=== PATIENT | female | born 1995 | race American Indian/Alaskan Native ===

== ENCOUNTER 2020-06-11 14:13 | Emergency (ER) | payer MEDICAID ==
--- NOTE | 2020-06-11 16:35 | Event Note ---
ED Screening Note ED Screening Note: epigastric abd discomfort back pain nausea, one episode of vomiting PMHx sickle cell trait no allergies to meds LNMP: currently on cycle This initial assessment/diagnostic orders/clinical plan/treatment(s) is/are subject to change based on patients health status, clinical progression and re-assessment by fellow clinical providers in the ED. Further treatment and workup at subsequent clinical providers discretion. Patient/guardian urged not to elope from the ED as their condition may be serious if not clinically assessed and managed. Initial orders include: labs, UA
[2020-06-11 17:05] LABS: Basophils # (Auto) 0.1 K/mm3 (0.0-0.1); Basophils % (Auto) 0.7 % (0.0-1.8); Eosinophils # (Auto) 0.2 K/mm3 (0.0-0.4); Eosinophils % (Auto) 1.7 % (0.0-4.3); Hematocrit 41.4 % (30.3-42.9); Hemoglobin 13.6 gm/dl (10.1-14.3); Lymphocytes # (Auto) 3.6 K/mm3 (1.2-5.4); Lymphocytes % (Auto) 32.1 % (13.4-35.0); Mean Corpuscular HGB Conc 33 % (30-34); Mean Corpuscular Volume 79 fl (79-97); Monocytes # (Auto) 0.9 K/mm3 (0.0-0.8); Monocytes % (Auto) 7.6 % (0.0-7.3); Platelet Count 294 K/mm3 (140-440); Red Blood Count 5.26 M/mm3 (3.65-5.03); Red Cell Distribution Width 14.7 % (13.2-15.2)
[2020-06-11 17:08] LABS: Alanine Aminotransferase 9 units/L (7-56); Blood Urea Nitrogen 6 mg/dL (7-17); Calcium 9.4 mg/dL (8.4-10.2); Hemolysis Index 9
[2020-06-11 17:12] LABS: BUN/Creatinine Ratio 9
--- NOTE | 2020-06-11 19:15 | Emergency Department Report ---
ED N/V/D HPI - General Chief complaint: Nausea/Vomiting/Diarrhea Stated complaint: CHEST PAINS LT SIDE X7 DAYS Time Seen by Provider: 06/11/20 16:33 Source: patient Mode of arrival: Ambulatory Limitations: No Limitations - History of Present Illness Initial comments: 24-year-old obese F [place] female presents to the emergency department complaining of 1 to 2 weeks history of waxing and waning nausea with an occasional episode of vomiting. States that it always preceded about 1 or 2 weeks ago with a couple episodes of diarrhea which was associated with epigastric pain which lasted for about 1 to 1-day and then resolve however she is been unable to get rid of the continuous waves of nausea. She states that she normally only feels like this when she is and had a suspicion today. She reports no chest pain, no palpitations no current abdominal pain, no fever, chills, sweats, hemoptysis, hematemesis hematochezia, dysuria, or hematuria. She is also been experiencing headaches which has been associated with the nausea as well she reports no trauma, no blurred vision, no known hypertension, no visual disturbances, no scotomas, no ear pain or sore throat. MD complaint: nausea Associated Abdominal Pain: No Radiation: none Associated Symptoms: nausea/vomiting. denies: myalgias, chest pain, cough, fever/chills, loss of appetite, shortness of breath, syncope, other - Related Data Previous Rx's Medication Instructions Recorded Last Taken Type Doxylamine Succinate/Vit B6 1 each PO TID #20 tablet. 06/11/20 Unknown Rx [Diclegis Dr 10-10 mg Tablet] Allergies Allergy/AdvReac Type Severity Reaction Status Date / Time No Known Allergies Allergy Unverified 06/11/20 16:02 ED Review of Systems ROS: Stated complaint: CHEST PAINS LT SIDE X7 DAYS Other details as noted in HPI Comment: All other systems reviewed and negative ED Past Medical Hx - Medications Home Medications: Home Medications Medication Instructions Recorded Confirmed Last Taken Type Doxylamine Succinate/Vit B6 1 each PO TID #20 tablet. 06/11/20 Unknown Rx [Diclegis Dr 10-10 mg Tablet] ED Physical Exam - General Limitations: No Limitations General appearance: alert, in no apparent distress - Head Head exam: Present: atraumatic, normocephalic - Eye Eye exam: Present: normal appearance, PERRL, EOMI Pupils: Present: normal accommodation - ENT ENT exam: Present: normal exam, normal orophraynx, mucous membranes moist - Neck Neck exam: Present: normal inspection - Respiratory Respiratory exam: Present: normal lung sounds bilaterally. Absent: respiratory distress, wheezes, rhonchi - Cardiovascular Cardiovascular Exam: Present: regular rate, normal rhythm. Absent: systolic murmur, diastolic murmur, rubs, gallop - GI/Abdominal GI/Abdominal exam: Present: soft, normal bowel sounds, other (No Magaña sign, no Rovsing sign, no Saini Tamez, no tenderness at McBurney's. No suprapubic pain no radiating radiating pain to the shoulder). Absent: tenderness, guarding, rebound, hyperactive bowel sounds, hypoactive bowel sounds, organomegaly, mass - Extremities Exam Extremities exam: Present: normal inspection, normal capillary refill - Back Exam Back exam: Present: normal inspection. Absent: CVA tenderness (R), CVA tenderness (L) - Neurological Exam Neurological exam: Present: alert, oriented X3, CN II-XII intact, normal gait - Psychiatric Psychiatric exam: Present: normal affect, normal mood. Absent: anxious, flat affect, homicidal ideation - Skin Skin exam: Present: warm, dry, intact, normal color. Absent: rash, diaphoretic, erythema, urticaria, petechiae ED Course Vital Signs 06/11/20 06/11/20 16:01 19:44 Temperature 98.8 F 98.1 F Pulse Rate 80 84 Respiratory 16 18 Rate Blood Pressure 115/82 Blood Pressure 125/74 [Left] O2 Sat by Pulse 100 100 Oximetry ED Medical Decision Making - Lab Data Result diagrams: 06/11/20 16:36 06/11/20 16:36 Critical care attestation.: If time is entered above; I have spent that time in minutes in the direct care of this critically ill patient, excluding procedure time. ED Disposition Clinical Impression: Nausea, , Positive test Disposition: - TO HOME OR SELFCARE Is pt being admited?: No Does the pt Need Aspirin: No Condition: Stable Instructions: Nausea, Adult, First Trimester of , [id number], P renatal Care, How a Baby Grows During Prescriptions: Doxylamine Succinate/Vit B6 [Kiarra Anton 10-10 mg Tablet] 1 each PO TID #20 tablet. Referrals: [facility] [Provider Group] - 3-5 Days [facility], [Primary Care Provider] - 3-5 Days
[2020-06-11 19:39] LABS: Bilirubin,Urine NEG (Negative); Blood,Urine NEG (Negative); Color,Urine Yellow (Yellow); Protein,Urine <15 mg/dL mg/dL (Negative); Urobilinogen,Urine < 2.0 mg/dL (<2.0); WBC,Urine < 1.0 /HPF (0.0-6.0)
[2020-06-11 19:45] VITALS: BP 115/82
== END 2020-06-11 19:55 | disposition home or self-care (01) ==
LOC: ED 14:13
DX: O26.891 Other specified pregnancy related conditions, first trimester (principal); R11.0 Nausea; Z3A.00 Weeks of gestation of pregnancy not specified; Z79.899 Other long term (current) drug therapy
CPT/HCPCS: 36415; 80053; 81001; 83690; 84703; 85025

== ENCOUNTER 2020-06-15 12:05 | Emergency (ER) | payer MEDICAID ==
[2020-06-15] MEDS ORDERED: ONDANSETRON 4 MG/2 ML INJ IV ONE (12:29)
[2020-06-15] MEDS ORDERED: SODIUM CHLORIDE 0.9% 1000 ML 1,000 ML IV ONE (12:29)
--- NOTE | 2020-06-15 13:17 | Emergency Department Report ---
ED General Adult HPI - General Chief complaint: Nausea/Vomiting/Diarrhea Stated complaint: ,VOMITING/SEEN HERE 2 DAYS AGO Time Seen by Provider: 06/15/20 12:26 Source: patient Mode of arrival: Ambulatory Limitations: No Limitations - History of Present Illness Initial comments: 24-year-old female presents to the emergency room stating that she is she was had a positive at this ER on 06/11/2020. She states that she has had ongoing nausea fat now with vaginal bleeding which she describes as spotting not enough for her to use pad over the last 2 weeks she states the nausea causes her chest to hurt especially when she feels like she has to vomit. She denies any other symptoms no fever no coughing no shortness of breath. She is 5 para 3 AB 1. She has not followed up with her PCP as yet -: week(s) Location: chest Radiation: non-radiation Worsens with: none Associated Symptoms: nausea/vomiting. denies: confusion, cough, fever/chills, loss of appetite, shortness of breath, syncope, weakness Treatments Prior to Arrival: none - Related Data Previous Rx's Medication Instructions Recorded Last Taken Type Doxylamine Succinate/Vit B6 1 each PO TID #20 tablet. 06/11/20 Unknown Rx [Kiarra Anton 10-10 mg Tablet] Ondansetron [Zofran Odt] 4 mg PO Q8HR PRN #20 tab.umeshdis 06/15/20 Unknown Rx Allergies Allergy/AdvReac Type Severity Reaction Status Date / Time No Known Allergies Allergy Unverified 06/11/20 16:02 ED Review of Systems ROS: Stated complaint: ,VOMITING/SEEN HERE 2 DAYS AGO Other details as noted in HPI ED Past Medical Hx - Past Medical History Previous Medical History?: No - Surgical History Additional Surgical History: - Social History Smoking Status: Current Every Day Smoker - Medications Home Medications: Home Medications Medication Instructions Recorded Confirmed Last Taken Type Doxylamine Succinate/Vit B6 1 each PO TID #20 tablet. 06/11/20 Unknown Rx [Kiarra Anton 10-10 mg Tablet] Ondansetron [Zofran Odt] 4 mg PO Q8HR PRN #20 tab.ismael 06/15/20 Unknown Rx ED Physical Exam - General Limitations: No Limitations General appearance: alert, in no apparent distress - Head Head exam: Present: atraumatic, normal inspection - Eye Eye exam: Present: normal appearance - ENT ENT exam: Present: normal exam - Neck Neck exam: Present: normal inspection - Respiratory Respiratory exam: Present: normal lung sounds bilaterally, chest wall tenderness (Anterior chest wall pain with palpation). Absent: respiratory distress, wheezes - Cardiovascular Cardiovascular Exam: Present: regular rate, normal heart sounds - GI/Abdominal GI/Abdominal exam: Present: soft, normal bowel sounds. Absent: distended, tenderness, guarding - Extremities Exam Extremities exam: Present: normal inspection, normal capillary refill - Back Exam Back exam: Present: normal inspection. Absent: CVA tenderness (R), CVA tenderness (L) - Neurological Exam Neurological exam: Present: alert, oriented X3, normal gait - Psychiatric Psychiatric exam: Present: normal affect - Skin Skin exam: Present: warm, dry, intact ED Course Vital Signs 06/15/20 06/15/20 12:10 17:13 Temperature 98.0 F Pulse Rate 105 H 82 Respiratory 18 18 Rate Blood Pressure 129/60 Blood Pressure 126/62 [Right] O2 Sat by Pulse 98 99 Oximetry - Reevaluation(s) Reevaluation #1: 06/15/20 16:44 Patient in room sleeping comfortably had to be aroused she denies any current pain no chest pain no shortness of breath she received 1 L of IV fluids. I observed her walking to the bathroom with steady gait and in no distress ED Medical Decision Making - Lab Data Result diagrams: 06/15/20 14:08 06/15/20 14:08 - Radiology Data Radiology results: report reviewed EXAMINATION: Obstetrical Ultrasound INDICATION: Abdominal pain in early COMPARISON: None FINDINGS: There is a single, living intrauterine . Kistler-rump length = 1.2 cm = 7 weeks, 1 day(s). heart rate is 164 beats per minute. The right adnexal region appears within normal limits. The left adnexal region is not well- visualized. No free pelvic fluid is seen. IMPRESSION: 1. Single living intrauterine with estimated gestational age of 7 weeks, 1 day. Critical Care Time: No Critical care attestation.: If time is entered above; I have spent that time in minutes in the direct care of this critically ill patient, excluding procedure time. ED Disposition Clinical Impression: Threatened miscarriage in early Qualifiers: Weeks of gestation: less than 8 weeks Qualified Code(s): Z3A.01 - Less than 8 weeks gestation of Disposition: DC- TO HOME OR SELFCARE Is pt being admited?: No Does the pt Need Aspirin: No Condition: Stable Instructions: Threatened Miscarriage, First Trimester of , [id number]-[id number] Additional Instructions: According to the ultrasound you are 7 weeks and 1 day your baby's heart rate is 164 [place] [address]. Rest drink plenty fluids please follow-up with with your INTERN PRODUCT MARKETING MANAGER doctor as soon as possible I have given you the my [employer]N PRODUCT MARKETING MANAGER group you can also give them a call to make an appointment at [phone]. Your urine shows no signs of infection. Your blood work had slight changes which are nonspecific and could just be related to dehydration or viral causes. Please follow-up with your INTERN PRODUCT MARKETING MANAGER or return to the emergency room for abdominal pain or heavy vaginal bleeding Prescriptions: Ondansetron [Zofran Odt] 4 mg PO Q8HR PRN #20 tab.rapdis PRN Reason: Nausea Referrals: PRIMARY CARE, [Primary Care Provider] - 3-5 Days NARINDER MOFFETT MD [Staff Physician] - 3-5 Days Time of Disposition: 16:49
[2020-06-15] MEDS ORDERED: ONDANSETRON 4 MG ODT TAB PO ONE (13:36)
--- NOTE | 2020-06-15 14:15 | Ultrasound Report ---
EXAMINATION: Obstetrical Ultrasound INDICATION: Abdominal pain in early COMPARISON: None FINDINGS: There is a single, living intrauterine . Velma-rump length = 1.2 cm = 7 weeks, 1 day(s). heart rate is 164 beats per minute. The right adnexal region appears within normal limits. The left adnexal region is not well-visualized . No free pelvic fluid is seen. IMPRESSION: 1. Single living intrauterine with estimated gestational age of 7 weeks, 1 day. Signer Name: Adela Manuel MD Signed: 06/15/2020 2:10 PM Workstation Name: [id number]
[2020-06-15 14:18] LABS: Basophils % (Auto) 0.4 % (0.0-1.8); Eosinophils # (Auto) 0.1 K/mm3 (0.0-0.4); Eosinophils % (Auto) 0.4 % (0.0-4.3); Hematocrit 40.7 % (30.3-42.9); Hemoglobin 13.6 gm/dl (10.1-14.3); Lymphocytes % (Auto) 14.9 % (13.4-35.0); Mean Corpuscular HGB Conc 34 % (30-34); Mean Corpuscular Volume 77 fl (79-97); Monocytes # (Auto) 0.9 K/mm3 (0.0-0.8); Monocytes % (Auto) 6.9 % (0.0-7.3); Platelet Count 290 K/mm3 (140-440); Red Blood Count 5.26 M/mm3 (3.65-5.03); Red Cell Distribution Width 14.8 % (13.2-15.2)
[2020-06-15 14:44] LABS: Alanine Aminotransferase 9 units/L (7-56); Albumin 4.1 g/dL (3.9-5); BUN/Creatinine Ratio 9; Blood Urea Nitrogen 6 mg/dL (7-17); Calcium 9.4 mg/dL (8.4-10.2); Hemolysis Index 0
[2020-06-15 16:24] LABS: Bilirubin,Urine NEG (Negative); Blood,Urine LG (Negative); Color,Urine Yellow (Yellow); Mucus,Urine FEW /HPF; Urobilinogen,Urine < 2.0 mg/dL (<2.0)
[2020-06-15 17:15] VITALS: BP 126/62
== END 2020-06-15 17:13 | disposition home or self-care (01) ==
LOC: ED 12:05
DX: O20.0 Threatened abortion (principal); F17.200 Nicotine dependence, unspecified, uncomplicated; Z3A.01 Less than 8 weeks gestation of pregnancy; Z98.890 Other specified postprocedural states; Z79.899 Other long term (current) drug therapy
CPT/HCPCS: 36415; 76801; 80053; 81001; 83690; 83735; 84702; 85025; 96361; 96374; 99284; J2405; J7030; Q0162

== ENCOUNTER 2020-08-03 15:47 | Emergency (ER) | payer SELFPAY ==
--- NOTE | 2020-08-03 16:18 | Event Note ---
ED Screening Note Date of service: 08/03/20 Time: 16:06 ED Screening Note: This initial assessment/diagnostic orders/clinical plan/treatment(s) is/are subject to change based on patients health status, clinical progression and re- assessment by fellow clinical providers in the ED. Further treatment and workup at subsequent clinical providers discretion. Patient/guardian urged not to elope from the ED as their condition may be serious if not clinically assessed and managed. Initial orders include: This is a 24-year-old obese female she is complaining of cough headache nausea,vomiting diarrhea symptoms started 1 week ago. She denies any known Covid sick contacts. She reports having an 1 month ago. No current vaginal bleeding. she denies fever. She is in no apparent distress and she denies any chronic medical conditions
[2020-08-03 16:32] LABS: Hematocrit 37.7 % (30.3-42.9); Hemoglobin 12.5 gm/dl (10.1-14.3); Mean Corpuscular HGB Conc 33 % (30-34); Mean Corpuscular Volume 76 fl (79-97); Platelet Count 294 K/mm3 (140-440); Red Blood Count 4.94 M/mm3 (3.65-5.03); Red Cell Distribution Width 14.5 % (13.2-15.2)
--- NOTE | 2020-08-03 16:47 | XRay Report ---
CHEST 2 VIEWS INDICATION / CLINICAL INFORMATION: COUGH, COVID LIKE SYMPTOMS. COMPARISON: None available. FINDINGS: SUPPORT DEVICES: None. HEART / MEDIASTINUM: No significant abnormality. LUNGS / PLEURA: No significant pulmonary or pleural abnormality. No pneumothorax. ADDITIONAL FINDINGS: No significant additional findings. IMPRESSION: 1. No acute findings. Signer Name: Ilan Van MD Signed: 08/03/2020 4:42 PM Workstation Name: [id number]
[2020-08-03 16:50] LABS: Alanine Aminotransferase 19 units/L (7-56); Albumin 3.6 g/dL (3.9-5); BUN/Creatinine Ratio 5; Blood Urea Nitrogen 6 mg/dL (7-17); Calcium 8.8 mg/dL (8.4-10.2); Hemolysis Index 1
[2020-08-03 18:36] LABS: Bacteria,Urine 1+ /HPF (Negative); Bilirubin,Urine NEG (Negative); Blood,Urine MOD (Negative); Color,Urine Amber (Yellow); Mucus,Urine FEW /HPF
[2020-08-03 18:44] LABS: HCG Qualitative,Urine Positive (Negative)
[2020-08-04] MEDS ORDERED: ACETAMINOPHEN 500 MG TAB PO ONE (01:10)
--- NOTE | 2020-08-04 01:45 | Emergency Department Report ---
ED General Adult HPI - General Chief complaint: Chest Pain Stated complaint: CHEST PAIN, BACK PAIN, BLURRY VISION Source: patient Mode of arrival: Ambulatory Limitations: No Limitations - History of Present Illness Initial comments: Patient is a 24-year-old -Beninese female with a history of chronic low back pain and chronic costochondritis who presents to the ED with complaint of acute onset persistent worsening low back pain and suprapubic pain as well as chest pain. Patient states that she is about 4 weeks s/p D&C procedure to evacuate a 9-week and complains of worsening lower abdominal pain and low back pain since the procedure 4 weeks ago. Patient denies fever, chills, dizziness, syncope, nausea and vomiting, chest pain, shortness of breath, cough, vaginal discharge, vaginal bleeding, dysuria, change in vision, numbness and tingling or weakness of upper and lower extremities bilaterally or headache. MD Complaint: Low back pain, lower abdominal pain, chest pain -: Gradual, year(s) (2) Location: chest, back (lower), abdomen (lower) Radiation: non-radiation Severity scale (0 -10): 5 Quality: aching, sharp Consistency: constant Improves with: none Associated Symptoms: denies other symptoms, chest pain, nausea/vomiting. denies: confusion, cough, fever/chills, headaches, malaise, rash, seizure, shortness of breath, syncope Treatments Prior to Arrival: none - Related Data Previous Rx's Medication Instructions Recorded Last Taken Type Doxylamine Succinate/Vit B6 1 each PO TID #20 tablet. 06/11/20 Unknown Rx [Kiarra Anton 10-10 mg Tablet] Ondansetron [Zofran Odt] 4 mg PO Q8HR PRN #20 tab.rapdis 06/15/20 Unknown Rx Baclofen 20 mg PO Q12H PRN #30 tablet 08/04/20 Unknown Rx Ibuprofen [Motrin] 800 mg PO Q8HR PRN #30 tablet 08/04/20 Unknown Rx Ondansetron [Zofran Odt] 4 mg PO Q8HR PRN #20 tab.rapdis 08/04/20 Unknown Rx Sulfamethoxazole/Trimethoprim 1 each PO Q12H #20 tablet 08/04/20 Unknown Rx [Bactrim DS TAB] Allergies Allergy/AdvReac Type Severity Reaction Status Date / Time No Known Allergies Allergy Verified 08/04/20 02:18 ED Review of Systems ROS: Stated complaint: CHEST PAIN, BACK PAIN, BLURRY VISION Other details as noted in HPI Constitutional: denies: chills, fever Eyes: denies: eye pain, eye discharge, vision change ENT: denies: ear pain, throat pain Respiratory: denies: cough, shortness of breath, wheezing Cardiovascular: chest pain (anterior). denies: palpitations Endocrine: no symptoms reported Gastrointestinal: abdominal pain (lower back pain), nausea. denies: vomiting, diarrhea, constipation, hematemesis Genitourinary: denies: urgency, dysuria, discharge Musculoskeletal: back pain (lower back), arthralgia, myalgia. denies: joint swelling Skin: denies: rash, lesions Neurological: denies: headache, weakness, paresthesias Psychiatric: denies: anxiety, depression Hematological/Lymphatic: denies: easy bleeding, easy bruising ED Past Medical Hx - Past Medical History Previous Medical History?: Yes Additional medical history: 06/2020 - Surgical History Past Surgical History?: Yes Additional Surgical History: , 06/2020 - Social History Smoking Status: Current Every Day Smoker Substance Use Type: Alcohol, Marijuana - Medications Home Medications: Home Medications Medication Instructions Recorded Confirmed Last Taken Type Doxylamine Succinate/Vit B6 1 each PO TID #20 tablet. 06/11/20 Unknown Rx [Kiarra Anton 10-10 mg Tablet] Ondansetron [Zofran Odt] 4 mg PO Q8HR PRN #20 tab.rapdis 06/15/20 Unknown Rx Baclofen 20 mg PO Q12H PRN #30 tablet 08/04/20 Unknown Rx Ibuprofen [Motrin] 800 mg PO Q8HR PRN #30 tablet 08/04/20 Unknown Rx Ondansetron [Zofran Odt] 4 mg PO Q8HR PRN #20 tab.rapdis 08/04/20 Unknown Rx Sulfamethoxazole/Trimethoprim 1 each PO Q12H #20 tablet 08/04/20 Unknown Rx [Bactrim DS TAB] ED Physical Exam - General Limitations: No Limitations General appearance: alert, in no apparent distress - Head Head exam: Present: atraumatic, normocephalic, normal inspection - Eye Eye exam: Present: normal appearance, PERRL, EOMI Pupils: Present: normal accommodation - ENT ENT exam: Present: normal exam, normal orophraynx, mucous membranes moist, TM's normal bilaterally, normal external ear exam - Neck Neck exam: Present: normal inspection, full ROM - Respiratory Respiratory exam: Present: normal lung sounds bilaterally, chest wall tenderness (palpable reproducible diffuse anterior chest wall tenderness). Absent: respiratory distress, wheezes, rales, rhonchi, accessory muscle use, decreased breath sounds, prolonged expiratory - Cardiovascular Cardiovascular Exam: Present: normal rhythm, tachycardia, normal heart sounds. Absent: systolic murmur, diastolic murmur, rubs, gallop - GI/Abdominal GI/Abdominal exam: Present: soft, tenderness (Palpable mild suprapubic tenderness), normal bowel sounds. Absent: guarding, rebound, hyperactive bowel sounds, hypoactive bowel sounds, organomegaly - Extremities Exam Extremities exam: Present: normal inspection, full ROM, normal capillary refill - Back Exam Back exam: Present: normal inspection, full ROM, tenderness (Palpable lumbosacral pain), muscle spasm, paraspinal tenderness. Absent: CVA tenderness (R), vertebral tenderness - Neurological Exam Neurological exam: Present: alert, oriented X3, CN II-XII intact, normal gait, reflexes normal - Psychiatric Psychiatric exam: Present: normal affect, normal mood - Skin Skin exam: Present: warm, dry, intact, normal color. Absent: rash ED Course Vital Signs 08/03/20 08/04/20 08/04/20 16:08 01:50 02:42 Temperature 99.9 F H Pulse Rate 116 H 105 H Respiratory 22 16 Rate Blood Pressure 122/72 107/72 O2 Sat by Pulse 96 100 Oximetry 08/04/20 03:40 Temperature Pulse Rate 87 Respiratory Rate Blood Pressure O2 Sat by Pulse Oximetry ED Medical Decision Making - Lab Data Result diagrams: 08/03/20 16:11 08/03/20 16:11 - Radiology Data Radiology results: report reviewed, image reviewed [facility] [address] [place] [address] XRay Report Signed Patient: UCHE WHITNEY MR#: [id number] 51 : 1995 Acct:[id number] Age/Sex: 24 / F ADM Date: 08/03/20 Loc: ED Attending Dr: Ordering Physician: SHREYASCHET MARTINEZBC Date of Service: 08/03/20 Procedure(s): XR chest routine 2V Accession Number(s): [id number] cc: RODDY HART Fluoro Time In Minutes: CHEST 2 VIEWS INDICATION / CLINICAL INFORMATION: COUGH, COVID LIKE SYMPTOMS. COMPARISON: None available. FINDINGS: SUPPORT DEVICES: None. HEART / MEDIASTINUM: No significant abnormality. LUNGS / PLEURA: No significant pulmonary or pleural abnormality. No pneumothorax. ADDITIONAL FINDINGS: No significant additional findings. IMPRESSION: 1. No acute findings. Signer Name: Ilan Van MD Signed: 08/03/2020 4:42 PM Workstation Name: [id number] Transcribed By: TL Dictated By: Ilan Van MD Electronically Authenticated By: Ilan Van MD Signed Date/Time: 08/03/201641 DD/ 41 TD/TT: Print - Medical Decision Making This is a 24-year-old -Beninese female with a history of chronic low back pain and chronic costochondritis who presents to the ED with complaint of acute onset persistent worsening low back pain and suprapubic pain as well as chest pain. Patient states that she is about 4 weeks s/p D&C procedure to evacuate a 9-week and complains of worsening lower abdominal pain and low back pain since the procedure 4 weeks ago. In the ED, patient is alert and oriented x3 and is not in any distress but appears to be in pain, crying during the physical exam, anxious and tachycardic. Patient was treated for pain in the ED and also given antiemetics. Lab test results were reviewed and showed acute leukocytosis of 16,000 and significant urinary tract infection. The hCG quant was negative. Patient was treated in the ED with antibiotics and on reevaluation, patient's pain is well controlled medication. Patient will discharge home on pain medications and antibiotics and advised to follow-up with her primary care physician or [employer] TE[employer]ER physician in 5 to 7 days for reevaluation. Patient is advised return to the ED immediately if symptoms get worse. - Differential Diagnosis Costochondritis; pneumonia; PE; ACS; UTI; ovarian cyst; muscle spasm Critical care attestation.: If time is entered above; I have spent that time in minutes in the direct care of this critically ill patient, excluding procedure time. ED Disposition Clinical Impression: Acute urinary tract infection, Acute nonspecific chest pain with low risk of coronary artery disease, Chronic pain syndrome Chronic low back pain without sciatica Qualifiers: Back pain laterality: bilateral Qualified Code(s): M54.5 - Low back pain Disposition: TO HOME OR SELFCARE Is pt being admited?: No Does the pt Need Aspirin: No Condition: Stable Instructions: Chest Wall Pain, Ilzt-ud-Ddrt, Urinary Tract Infection, Adult, [id number], Nonspecific Chest Pain, Adult, Pazb-ha-Ymxk, Chronic Back Pain, Azqd-cy-Dids, Chest Pain (ED) Additional Instructions: All lab test results were reviewed and are all nonactionable except for acute leukocytosis of 16,000, which is likely due to a recent invasive procedure during your D&C. The urinalysis also showed significant urinary tract infection which could as well be the source of the leukocytosis. The rest of the lab test results were unremarkable including the hCG quant that shows that is negative. Therefore take medications with food, drink plenty of fluids and follow-up with your primary care physician in 5 to 7 days for reevaluation. Return to the ED immediately if symptoms get worse. Prescriptions: Baclofen 20 mg PO Q12H PRN #30 tablet PRN Reason: Muscle Spasm Sulfamethoxazole/Trimethoprim [Bactrim DS TAB] 1 each PO Q12H #20 tablet Ibuprofen [Motrin] 800 mg PO Q8HR PRN #30 tablet PRN Reason: Pain , Severe (7-10) Ondansetron [Zofran Odt] 4 mg PO Q8HR PRN #20 tab.rapdis PRN Reason: Nausea Referrals: [facility] [Provider Group] - 3-5 Days Time of Disposition: 01:50 Print Language: OMANI
[2020-08-04 02:00] VITALS: BP 107/72
[2020-08-04] MEDS ORDERED: LIDOCAINE-MPF (1%) 10 MG/1 ML VIAL 5 ML INFILTRATI ONE ×2 (02:00→02:21)
[2020-08-04] MEDS ORDERED: IBUPROFEN 600 MG TAB PO ONE ×2 (02:01→02:22)
[2020-08-04] MEDS ORDERED: ONDANSETRON 4 MG ODT TAB PO ONE ×2 (02:01→02:21)
[2020-08-04] MEDS ORDERED: HYDROcodone/ACETAMINOPHEN 5-325 MG TAB PO ONE (02:01)
[2020-08-04] MEDS ORDERED: HYDROcodone/ACETAMINOPHEN 7.5-325MG TAB PO ONE (02:21)
== END 2020-08-04 03:40 | disposition home or self-care (01) ==
LOC: ED 15:47
DX: M54.5 Low back pain (principal); N39.0 Urinary tract infection, site not specified; R07.89 Other chest pain; G89.4 Chronic pain syndrome; F12.90 Cannabis use, unspecified, uncomplicated; F17.200 Nicotine dependence, unspecified, uncomplicated; Z79.899 Other long term (current) drug therapy; Z98.890 Other specified postprocedural states
CPT/HCPCS: 36415; 71046; 80053; 81001; 81025; 83735; 84702; 85027; 87086; 96372; 99284; J0696; Q0162

== ENCOUNTER 2021-09-24 08:43 | Emergency (ER) | payer SELFPAY ==
[2021-09-24 09:08] VITALS: BP 89/50
[2021-09-24] MEDS ORDERED: SODIUM CHLORIDE 0.9% 1000 ML 1,000 ML IV ONE (09:24)
[2021-09-24 10:14] LABS: Blood Urea Nitrogen 2 mg/dL (7-17); Calcium 8.6 mg/dL (8.4-10.2); Hemolysis Index 0
[2021-09-24 10:16] LABS: BUN/Creatinine Ratio 3
[2021-09-24 10:21] LABS: Hematocrit 30.7 % (30.3-42.9); Hemoglobin 10.2 gm/dl (10.1-14.3); Mean Corpuscular HGB Conc 33 % (30-34); Mean Corpuscular Volume 81 fl (79-97); Platelet Count 227 K/mm3 (140-440); Red Blood Count 3.78 M/mm3 (3.65-5.03); Red Cell Distribution Width 14.2 % (13.2-15.2)
[2021-09-24] MEDS ORDERED: ACETAMINOPHEN 500 MG TAB PO ONE (10:22)
[2021-09-24 11:16] LABS: Basophils % (Manual) 0 % (0.0-1.8); Eosinophils % (Manual) 0 % (0.0-4.3); Total Cells Counted 100
[2021-09-24 11:19] LABS: Anisocytosis 1+; Hypochromasia Few; Poikilocytosis Few
[2021-09-24 11:20] LABS: Large Platelets Rare; Platelet Estimate Consistent w Auto; Spherocytes Rare; Stomatocytes Rare
--- NOTE | 2021-09-24 12:52 | Emergency Department Report ---
ED General Adult HPI - General Chief complaint: Nausea/Vomiting/Diarrhea Stated complaint: CHEST PAIN/BODY PAIN Time Seen by Provider: 09/24/21 09:22 Source: EMS Mode of arrival: Stretcher Limitations: No Limitations - History of Present Illness Initial comments: Patient presents with body aches and that is been going on for the last few days. Patient states that she has not had any care she has some abdominal pain and back pain the pain is moderate. She states that she is also been nauseous and has vomited once the vomit is nonbloody nonbilious. Severity scale (0 -10): 7 - Related Data Previous Rx's Medication Instructions Recorded Last Taken Type Doxylamine Succinate/Vit B6 1 each PO TID #20 tablet. 06/11/20 Unknown Rx [Dicjfs Dr 10-10 mg Tablet] Ondansetron [Zofran Odt] 4 mg PO Q8HR PRN #20 tab.rapdis 06/15/20 Unknown Rx Baclofen 20 mg PO Q12H PRN #30 tablet 08/04/20 Unknown Rx Ibuprofen [Motrin] 800 mg PO Q8HR PRN #30 tablet 08/04/20 Unknown Rx Ondansetron [Zofran Odt] 4 mg PO Q8HR PRN #20 tab.rapdis 08/04/20 Unknown Rx Sulfamethoxazole/Trimethoprim 1 each PO Q12H #20 tablet 08/04/20 Unknown Rx [Bactrim DS TAB] Allergies Allergy/AdvReac Type Severity Reaction Status Date / Time No Known Allergies Allergy Verified 08/04/20 02:18 ED Review of Systems ROS: Stated complaint: CHEST PAIN/BODY PAIN Other details as noted in HPI Constitutional: denies: chills, fever Eyes: denies: eye pain, eye discharge, vision change ENT: denies: ear pain, throat pain Respiratory: denies: cough, shortness of breath, wheezing Cardiovascular: denies: chest pain, palpitations Endocrine: no symptoms reported Gastrointestinal: abdominal pain, nausea. denies: diarrhea Genitourinary: denies: urgency, dysuria, discharge Musculoskeletal: back pain. denies: joint swelling, arthralgia Skin: denies: rash, lesions Neurological: denies: headache, weakness, paresthesias Psychiatric: denies: anxiety, depression Hematological/Lymphatic: denies: easy bleeding, easy bruising ED Past Medical Hx - Past Medical History Additional medical history: 06/2020 - Surgical History Additional Surgical History: , 06/2020 - Social History Smoking Status: Smoker, Current Status Unknown Substance Use Type: None - Medications Home Medications: Home Medications Medication Instructions Recorded Confirmed Last Taken Type Doxylamine Succinate/Vit B6 1 each PO TID #20 tablet. 06/11/20 Unknown Rx [Diclegis Dr 10-10 mg Tablet] Ondansetron [Zofran Odt] 4 mg PO Q8HR PRN #20 tab.rapdis 06/15/20 Unknown Rx Baclofen 20 mg PO Q12H PRN #30 tablet 08/04/20 Unknown Rx Ibuprofen [Motrin] 800 mg PO Q8HR PRN #30 tablet 08/04/20 Unknown Rx Ondansetron [Zofran Odt] 4 mg PO Q8HR PRN #20 tab.rapdis 08/04/20 Unknown Rx Sulfamethoxazole/Trimethoprim 1 each PO Q12H #20 tablet 08/04/20 Unknown Rx [Bactrim DS TAB] ED Physical Exam - General Limitations: No Limitations General appearance: alert, in no apparent distress - Head Head exam: Present: atraumatic, normocephalic - Eye Eye exam: Present: normal appearance - ENT ENT exam: Present: mucous membranes moist - Neck Neck exam: Present: normal inspection - Respiratory Respiratory exam: Present: normal lung sounds bilaterally. Absent: respiratory distress - Cardiovascular Cardiovascular Exam: Present: regular rate, normal rhythm. Absent: systolic murmur, diastolic murmur, rubs, gallop - GI/Abdominal GI/Abdominal exam: Present: soft, normal bowel sounds, other (Gravid uterus) - Extremities Exam Extremities exam: Present: normal inspection - Back Exam Back exam: Present: normal inspection - Neurological Exam Neurological exam: Present: alert, oriented X3 - Psychiatric Psychiatric exam: Present: normal affect, normal mood - Skin Skin exam: Present: warm, dry, intact, normal color. Absent: rash ED Course Vital Signs 09/24/21 09/24/21 09/24/21 08:45 09:05 09:08 Temperature 100.2 F H 100.2 F H Pulse Rate 118 H 115 H 118 H Respiratory 16 20 20 Rate Blood Pressure 89/50 Blood Pressure 122/70 89/50 [Left] O2 Sat by Pulse 98 98 97 Oximetry 09/24/21 09/24/21 09/24/21 09:12 09:16 09:30 Temperature Pulse Rate 117 H 114 H Respiratory 20 12 17 Rate Blood Pressure Blood Pressure [Left] O2 Sat by Pulse 99 100 99 Oximetry 09/24/21 09/24/21 09/24/21 09:40 10:28 11:16 Temperature Pulse Rate 117 H Respiratory 12 22 Rate Blood Pressure Blood Pressure [Left] O2 Sat by Pulse 96 100 Oximetry - Reevaluation(s) Reevaluation #1: 09/24/21 13:01 Patient is feeling better and is able to tolerate p.o. I will discharge patient. ED Medical Decision Making - Lab Data Result diagrams: 09/24/21 09:36 09/24/21 09:36 Lab Results 09/24/21 09/24/21 Range/Units 09:36 09:36 WBC 8.8 (4.5-11.0) K/mm3 RBC 3.78 (3.65-5.03) M/mm3 Hgb 10.2 (10.1-14.3) gm/dl Hct 30.7 (30.3-42.9) % MCV 81 (79-97) fl MCH 27 L (28-32) pg MCHC 33 (30-34) % RDW 14.2 (13.2-15.2) % Plt Count 227 (140-440) K/mm3 Add Manual Diff Complete Total Counted 100 Seg Neutrophils % Electric[employer] Seg Neuts % (Manual) 97.0 H (40.0-70.0) % Band Neutrophils % 0 % Lymphocytes % (Manual) 1.0 L (13.4-35.0) % Reactive Lymphs % (Man) 0 % Monocytes % (Manual) 2.0 (0.0-7.3) % Eosinophils % (Manual) 0 (0.0-4.3) % Basophils % (Manual) 0 (0.0-1.8) % Metamyelocytes % 0 % Myelocytes % 0 % Promyelocytes % 0 % Blast Cells % 0 % Nucleated RBC % Not Reportable Seg Neutrophils # Man 8.5 H (1.8-7.7) K/mm3 Band Neutrophils # 0.0 K/mm3 Lymphocytes # (Manual) 0.1 L (1.2-5.4) K/mm3 Abs React Lymphs (Man) 0.0 K/mm3 Monocytes # (Manual) 0.2 (0.0-0.8) K/mm3 Eosinophils # (Manual) 0.0 (0.0-0.4) K/mm3 Basophils # (Manual) 0.0 (0.0-0.1) K/mm3 Metamyelocytes # 0.0 K/mm3 Myelocytes # 0.0 K/mm3 Promyelocytes # 0.0 K/mm3 Blast Cells # 0.0 K/mm3 WBC Morphology Not Reportable Hypersegmented Neuts Not Reportable Hyposegmented Neuts Few Hypogranular Neuts Not Reportable Smudge Cells Not Reportable Toxic Granulation Not Reportable Toxic Vacuolation Not Reportable Dohle Bodies Not Reportable Pelger-Huet Anomaly Not Reportable Michelle Rods Not Reportable Platelet Estimate Consistent w auto Clumped Platelets Not Reportable Plt Clumps, EDTA Not Reportable Large Platelets Rare Giant Platelets Not Reportable Platelet Satelliting Not Reportable Plt Morphology Comment Not Reportable RBC Morphology Not Reportable Dimorphic RBCs Not Reportable Polychromasia Not Reportable Hypochromasia Few Poikilocytosis Few Anisocytosis 1+ Microcytosis 1+ Macrocytosis Not Reportable Spherocytes Rare Pappenheimer Bodies Not Reportable Sickle Cells Not Reportable Target Cells Not Reportable Tear Drop Cells Not Reportable Ovalocytes Not Reportable Stomatocytes Rare Helmet Cells Not Reportable Sher-[place] Bodies Not Reportable [place] Rings Not Reportable [place] Cells Not Reportable Bite Cells Not Reportable Crenated Cell Not Reportable Elliptocytes Not Reportable Acanthocytes (Spur) Not Reportable Rouleaux Not Reportable Hemoglobin C Crystals Not Reportable Schistocytes Not Reportable Malaria parasites Not Reportable [place] Bodies Not Reportable Hem Pathologist Commnt No Sodium 138 (137-145) mmol/L Potassium 3.3 L (3.6-5.0) mmol/L Chloride 104.5 (98-107) mmol/L Carbon Dioxide 22 (22-30) mmol/L Anion Gap 15 mmol/L BUN 2 L (7-17) mg/dL Creatinine 0.6 (0.6-1.2) mg/dL Estimated GFR > 60 ml/min BUN/Creatinine Ratio 3 % Glucose 90 (65-100) mg/dL Calcium 8.6 (8.4-10.2) mg/dL - Medical Decision Making Chief medical diagnosis: Influenza Differential medical diagnosis COVID-19, hyperemesis gravidarum OB ultrasound I will get a urinalysis I will get CBC BMP and I will reevaluate the patient Critical care attestation.: If time is entered above; I have spent that time in minutes in the direct care of this critically ill patient, excluding procedure time. ED Disposition Clinical Impression: Body aches Vomiting Qualifiers: Vomiting type: unspecified Nausea presence: unspecified Qualified Code(s): R11.10 - Vomiting, unspecified Qualifiers: Weeks of gestation: 21 weeks Qualified Code(s): Z3A.21 - 21 weeks gestation of Disposition: 01 HOME / SELF CARE / HOMELESS Is pt being admited?: No Does the pt Need Aspirin: No Condition: Stable Instructions: First Trimester of , [id number], Nausea and Vomiting, Adult, [id number] Referrals: PRIMARY CAREMD [Primary Care Provider] - 3-5 Days BELLA SIMMS MD [Staff Physician] - 3-5 Days
--- NOTE | 2021-09-24 20:56 | Ultrasound Report ---
ULTRASOUND OBSTETRIC Indication: abd pain Findings: There is a single intrauterine . BPD = 5.1 cm = 21 weeks, 2 day(s). Head circumference = 19.2 cm = 21 weeks, 3 day(s). Abdominal circumference = 16.2 cm = 21 weeks, 2 day(s). Femur length = 3.9 cm = 22 weeks, 4 day(s). Overall estimated sonographic age = 21 weeks, 5 day(s). heart rate is 152 beats per minute. Estimated weight is 452 grams position is breech. Cervix appears closed. 3.9 cm movement is present. Placenta is posterior and grade 0 . Amniotic fluid volume appears normal. Maternal adnexa appear normal. Impression: 1. Single living intrauterine with estimated sonographic age of 21 weeks, 5 day(s). 2. No sonographic abnormality identified. Signer Name: Drake Edmond MD Signed: 09/24/2021 8:51 PM Workstation Name: [id number]
== END 2021-09-24 13:23 | disposition home or self-care (01) ==
LOC: ED 08:43
DX: O21.2 Late vomiting of pregnancy (principal); O26.892 Other specified pregnancy related conditions, second trimester; Z3A.22 22 weeks gestation of pregnancy; R52 Pain, unspecified; Z98.890 Other specified postprocedural states; F17.290 Nicotine dependence, other tobacco product, uncomplicated
CPT/HCPCS: 36415; 76805; 80048; 85007; 85025; 96360; 99284; J7030